=== PATIENT | male | born 1975 | race Caucasian/White ===

== ENCOUNTER 2016-07-11 19:38 | Emergency (ER) | payer OTHER ==
--- NOTE | 2016-07-11 21:30 | ERRECORD ---
[facility] EMERGENCY RECORD HPI RASH (20:50 JLOY) CHIEF COMPLAINT: Patient presents for evaluation of The patient got the inclination after his shower today to look at his rectal area in the mirror after his shower and noted the skin was very dark. No symptoms but he came here for an eval. HISTORIAN: History provided by patient. LOCATION: Symptoms are localized. TIME COURSE: Patient unable to describe onset of symptoms, There has been no change in the patient's symptoms over time. ASSOCIATED WITH: No associated chills, No associated fever, No associated pain, No associated scaling. EXACERBATED BY: Patient's condition exacerbated by nothing. RELIEVED BY: Patient's condition relieved by nothing. ROS (20:51 JLOY) CONSTITUTIONAL: Historian denies chills, denies fever, denies malaise, denies weight loss. ENT: Historian denies rhinorrhea, denies sore throat. RESPIRATORY: Historian denies cough, denies shortness of breath. GI: Historian denies abdominal pain, denies constipation, denies diarrhea, denies nausea, denies vomiting. GENITOURINARY MALE: Historian denies dysuria, denies hematuria. MUSCULOSKELETAL: Historian denies arthralgias, denies myalgias. SKIN: Historian denies pruritis, reports rash. PAST MEDICAL HISTORY MEDICAL HISTORY: Notes: SEPTIC PNEUMONIA, Flu vaccine up to date, Tetanus immunization up to date, Past medical history includes genitourinary history, urinary tract infection, pyelonephritis, HYPOSPADIAS. (20:36 [facility]) MALE SURGICAL HISTORY: HYPOSPADIDIAS RECONSTRUCTION/TIP PROCEDURE (SEPTEMBER 2015 & MAR 2016). 5 HYPOSPADIAS RECONSTRUCTION PROCEDURES A BABY. (20:36 [facility]) PSYCHIATRIC HISTORY: No previous psychiatric history. (20:36 [facility]) SOCIAL HISTORY: Patient drinks socially, rarely, Patient is a former drug user, Patient currently uses tobacco, smokes cigarettes, daily, Patient smokes 1/2 packs per day, Lives at home, alone. (20:36 [facility]) NOTES: Nursing records reviewed, Agree with nursing records. (20:54 JLOY) KNOWN ALLERGIES No Known Drug Allergies CURRENT MEDICATIONS (20:32 [facility]) Keflex: CAPSULE : Strength - 500 mg : ORAL &a-1R&a+25V*p+0X*[id number]*c202B*c15G*c2P*p-0X&a-25V&a+1R Name: Beto Ferrara : 1975 M40 MedRec: [id number] AcctNum: [id number] Prepared: MonJul 11, 2016 20:58 by Interface Page 1 of 2 pMD [facility] EMERGENCY RECORD Patient Dose: 500 mg Oral 2 times a day.X10 DAYS. STARTED 07/09/16. VITAL SIGNS (20:27 [facility]) VITAL SIGNS: BP: 144/86, Pulse: 101, Resp: 16, Temp: 98.7 (Oral), Pain: 0, O2 sat: 97 on Room Air, Time: 07/11/2016 20:27. PHYSICAL EXAM (20:52 [facility]) CONSTITUTIONAL: Vital signs reviewed, Patient appears non toxic, Patient alert and oriented to person, place and time. EYES: Eye exam included findings of eyelids normal to inspection, Pupils equally round and reactive to light, Conjunctiva normal. RESPIRATORY CHEST: Respiratory exam included findings of no respiratory distress, Chest exam included findings of chest movement symmetrical. ABDOMEN MALE: Abdominal exam included findings of abdomen nontender, Bowel sounds normal, Liver normal, Spleen normal, no peritoneal signs, no rigidity, no guarding, no rebound, Exam of the rectal area reveals a normal appearing rectum but in a circular region starting 3-4 cm from the rectum he has a strip of skin that has generalized increased pigmentation. No other rash or abnormality. GENITOURINARY MALE: External genitalia normal. UPPER EXTREMITY: Upper extremity exam included findings of inspection normal. LOWER EXTREMITY: Lower extremity exam included findings of inspection normal. NEURO: [place] coma scale 15, Neuro exam findings include patient oriented to person, place and time, Speech normal. SKIN: Skin exam included findings of skin warm, dry, and normal in color, see rectal exam above. PSYCHIATRIC: Normal affect. PROBLEM LIST No recorded problems DIAGNOSIS (20:47 [facility]) FINAL: PRIMARY: RASH OTH NONSPECIFIC SKIN ERUPTION. PRESCRIPTION No recorded prescriptions DISPOSITION PATIENT: Disposition Type: Discharge, Disposition: *Discharge Home. (20:47 [facility]) Patient left the department. (20:52 [facility]) Lynn: YULISA=MD Donell, Felix [facility]=CHRISSY Johns, Gunjan &a-1R&a+25V*p+0X*[id number]*c202B*c15G*c2P*p-0X&a-25V&a+1R Name: Beto Ferrara Christina : 1975 M40 MedRec: [id number] AcctNum: [id number] Prepared: MonJul 11, 2016 20:58 by Interface Page 2 of 2 pMD MTDD
--- NOTE | 2016-07-11 21:32 | PICIS ---
[facility] EMERGENCY RECORD TRIAGE (MonJul 11, 2016 20:31 [facility]) TRIAGE NOTES: RASH TO BUTTOCKS. FIRST NOTICED TONIGHT. NO ITCHING. ALSO C/O ABNORMAL SMELL TO STOOL, DESCRIBED "SWEET". CURRENTLY TAKING KEFLEX FOR UTI. (MonJul 11, 2016 20:31 [facility]) PATIENT: NAME: Beto Ferrara, AGE: 40, GENDER: male, : Mon1975, TIME OF GREET: MonJul 11, 2016 19:39, PREFERRED LANGUAGE: Greenlandic, ETHNICITY: Not or , ECODE BILLING MAP: [facility], Zip Code: [address], KG WEIGHT: 63.5 (est.), PHONE: , , , PERSON ID: [id number], PCP: NONE. (MonJul 11, 2016 20:31 [facility]) COMPLAINT: RASH,BUTTOCKS,UNKNOWN LENGTH OF TIME. (MonJul 11, 2016 20:31 [facility]) ADMISSION: URGENCY: 4 Non Urgent, ADMISSION SOURCE: Home, TRANSPORT: CAR, BED: ER -02. (MonJul 11, 2016 20:31 [facility]) ASSESSMENT: Symptoms began 07/11/2016 19:30. (20:36 [facility]) PAIN: No complaint of pain. (20:36 [facility]) IMMUNIZATIONS: Flu vaccine up to date, Tetanus immunization up to date. (20:36 [facility]) SIRS SCORING: Heart Rate 55-109 (0), Temp range 96.8-101.1 (0), respiratory rate 12-24 (0), Mental Status altered: no (0). (20:36 [facility]) TRIAGE SCREENING: Patient denies suicidal ideation, Patient denies presence of domestic violence. (20:36 [facility]) PROVIDERS: TRIAGE NURSE: Gunjan Johns RN. (MonJul 11, 2016 20:31 [facility]) VITAL SIGNS: BP 144/86, Pulse 101, Resp 16, Temp 98.7, (Oral), Pain 0, O2 Sat 97, on Room Air, Time 07/11/2016 20:27. (20:27 [facility]) KNOWN ALLERGIES No Known Drug Allergies CURRENT MEDICATIONS (20:32 [facility]) Keflex: CAPSULE : Strength - 500 mg : ORAL Patient Dose: 500 mg Oral 2 times a day.X10 DAYS. STARTED 07/09/16. VITAL SIGNS (20:27 [facility]) VITAL SIGNS: BP: 144/86, Pulse: 101, Resp: 16, Temp: 98.7 (Oral), Pain: 0, O2 sat: 97 on Room Air, Time: 07/11/2016 20:27. NURSING ASSESSMENT: SKIN (20:35 [facility]) CONSTITUTIONAL: Complex assessment performed, Patient arrives ambulatory, Gait steady, History obtained from patient, Patient appears comfortable, Patient cooperative, Patient alert, Oriented to person, place and time, Skin warm, Skin dry, Skin normal in color, Mucous membranes pink, Mucous membranes moist, Patient is well-groomed, Patient complains of RASH. PAIN: Patient rates pain as 0 out of 10. &a-1R&a+25V*p+0X*b3374G*c202B*c15G*c2P*p-0X&a-25V&a+1R Name: Beto Ferrara : 1975 M40 MedRec: [id number] AcctNum: [id number] Prepared: MonJul 11, 2016 21:04 by Interface Page 1 of 4 pMD [facility] EMERGENCY RECORD SKIN: Skin assessment findings include skin warm, Skin dry, Skin normal in color, Inspection findings include rash, flat, non-itchy, without pustules, without drainage, to BUTTOCKS/BETWEEN BUTT CHEEKS, DARK DISCOLORATION. NOTES: Notes: NO ITCHING, PAIN, REDNESS, OR SWELLING. NURSING PROCEDURE: DISCHARGE NOTE (20:52 [facility]) DISCHARGE: Patient discharged to home, ambulating without assistance, driving self, unaccompanied, Summary of Care printed/ provided, Discharge instructions given to patient, Simple or moderate discharge teaching performed, by CHRISSY Hollins, discharge instructions reviewed with patient using teachback method. explained to pt skin does not seem to have any sort of active infection per MD. follow up with a machine trimmer or PCP in the next few weeks for further evaluation. continue taking Keflex as prescribed Monday for UTI., Above person(s) verbalized understanding of discharge instructions and follow-up care. BELONGINGS: Belongings and valuables with patient upon arrival to the Emergency Department include:, Belongings and valuables with patient at time of discharge include:, Belongings remain with patient, Valuables remain with patient. HPI RASH (20:50 JLOY) CHIEF COMPLAINT: Patient presents for evaluation of The patient got the inclination after his shower today to look at his rectal area in the mirror after his shower and noted the skin was very dark. No symptoms but he came here for an eval. HISTORIAN: History provided by patient. LOCATION: Symptoms are localized. TIME COURSE: Patient unable to describe onset of symptoms, There has been no change in the patient's symptoms over time. ASSOCIATED WITH: No associated chills, No associated fever, No associated pain, No associated scaling. EXACERBATED BY: Patient's condition exacerbated by nothing. RELIEVED BY: Patient's condition relieved by nothing. ROS (20:51 [facility]) CONSTITUTIONAL: Historian denies chills, denies fever, denies malaise, denies weight loss. ENT: Historian denies rhinorrhea, denies sore throat. RESPIRATORY: Historian denies cough, denies shortness of breath. GI: Historian denies abdominal pain, denies constipation, denies diarrhea, denies nausea, denies vomiting. GENITOURINARY MALE: Historian denies dysuria, denies hematuria. MUSCULOSKELETAL: Historian denies arthralgias, denies myalgias. SKIN: Historian denies pruritis, reports rash. PAST MEDICAL HISTORY MEDICAL HISTORY: Notes: SEPTIC PNEUMONIA, Flu vaccine &a-1R&a+25V*p+0X*v8957J*c202B*c15G*c2P*p-0X&a-25V&a+1R Name: Beto Ferrara : 1975 M40 MedRec: [id number] AcctNum: [id number] Prepared: MonJul 11, 2016 21:04 by Interface Page 2 of 4 pMD [facility] EMERGENCY RECORD up to date, Tetanus immunization up to date, Past medical history includes genitourinary history, urinary tract infection, pyelonephritis, HYPOSPADIAS. (20:36 [facility]) MALE SURGICAL HISTORY: HYPOSPADIDIAS RECONSTRUCTION/TIP PROCEDURE (SEPTEMBER 2015 & MAR 2016). 5 HYPOSPADIAS RECONSTRUCTION PROCEDURES A BABY. (20:36 [facility]) PSYCHIATRIC HISTORY: No previous psychiatric history. (20:36 [facility]) SOCIAL HISTORY: Patient drinks socially, rarely, Patient is a former drug user, Patient currently uses tobacco, smokes cigarettes, daily, Patient smokes 1/2 packs per day, Lives at home, alone. (20:36 [facility]) NOTES: Nursing records reviewed, Agree with nursing records. (20:54 [facility]) PHYSICAL EXAM (20:52 [facility]) CONSTITUTIONAL: Vital signs reviewed, Patient appears non toxic, Patient alert and oriented to person, place and time. EYES: Eye exam included findings of eyelids normal to inspection, Pupils equally round and reactive to light, Conjunctiva normal. RESPIRATORY CHEST: Respiratory exam included findings of no respiratory distress, Chest exam included findings of chest movement symmetrical. ABDOMEN MALE: Abdominal exam included findings of abdomen nontender, Bowel sounds normal, Liver normal, Spleen normal, no peritoneal signs, no rigidity, no guarding, no rebound, Exam of the rectal area reveals a normal appearing rectum but in a circular region starting 3-4 cm from the rectum he has a strip of skin that has generalized increased pigmentation. No other rash or abnormality. GENITOURINARY MALE: External genitalia normal. UPPER EXTREMITY: Upper extremity exam included findings of inspection normal. LOWER EXTREMITY: Lower extremity exam included findings of inspection normal. NEURO: [place] coma scale 15, Neuro exam findings include patient oriented to person, place and time, Speech normal. SKIN: Skin exam included findings of skin warm, dry, and normal in color, see rectal exam above. PSYCHIATRIC: Normal affect. EVENTS TRANSFER: Triage to Emergency Emergency Room -02. (MonJul 11, 2016 20:31 [facility]) Removed from Emergency Emergency Room -02. (20:52 [facility]) PROBLEM LIST No recorded problems &a-1R&a+25V*p+0X*w3790C*c202B*c15G*c2P*p-0X&a-25V&a+1R Name: Beto Ferrara : 1975 M40 MedRec: [id number] AcctNum: [id number] Prepared: MonJul 11, 2016 21:04 by Interface Page 3 of 4 pMD [facility] EMERGENCY RECORD DIAGNOSIS (20:47 [facility]) FINAL: PRIMARY: RASH OTH NONSPECIFIC SKIN ERUPTION. DISPOSITION PATIENT: Disposition Type: Discharge, Disposition: *Discharge Home. (20:47 [facility]) Patient left the department. (20:52 [facility]) INSTRUCTION (20:49 [facility]) SPECIAL: You have a skin discoloration that does not appear to be related to any sort of active infection. You do not need to do anything specific to treat this but you should follow up with a machine trimmer or your primary care doctor in the next few weeks to have it further evaluated. If you develop new symptoms in the meantime please see your doctor or return to the ER. PRESCRIPTION No recorded prescriptions IMAGING (20:54 [facility]) *DISCHARGE INSTRUCTIONS RECEIPT: Image captured from scanner. *SUPPLY CHARGE SHEET: Image captured from scanner. ADMIN (20:54 [facility]) DIGITAL SIGNATURE: MD Donell, Felix. Lynn: YULISA=MD Donell, Felix [facility]=CHRISSY Johns, Gunjan &a-1R&a+25V*p+0X*[id number]*c202B*c15G*c2P*p-0X&a-25V&a+1R Name: Alem Beto Christina : 1975 0 MedRec: [id number] AcctNum: [id number] Prepared: MonJul 11, 2016 21:04 by Interface Page 4 of 4 pMD [facility] MEDICATION RECONCILIATION You were seen in the Emergency Department on: MonJul 11, 2016 KNOWN ALLERGIES No Known Drug Allergies HOME MEDICATIONS CONTINUE PRESCRIBED Keflex : CAPSULE : Strength - 500 mg : ORAL Continue as prescribed Patient had been takin mg Oral 2 times a day. Comment: X10 DAYS. STARTED 07/09/16. &a-1R&a+25V*p+0X*q2039D*c202B*c15G*c2P*p-0X&a-25V&a+1R Name: Alem Beto Christina : 1975 0 MedRec: [id number] AcctNum: [id number] Prepared: MonJul 11, 2016 21:04 by Interface [facility]
== END 2016-07-11 20:52 | disposition home or self-care (01) ==
LOC: NAV ERS 19:38
DX: R21 Rash and other nonspecific skin eruption (principal); F17.210 Nicotine dependence, cigarettes, uncomplicated
CPT/HCPCS: 99282